=== PATIENT | female | born 1985 | race Caucasian/White ===

== ENCOUNTER 2017-05-06 07:17 | Emergency (ER) | payer BC ==
[2017-05-06 07:28] VITALS: BP 100/58
--- NOTE | 2017-05-06 07:53 | UC ---
Lower Extremity/Ankle HPI - HPI Summary HPI Summary: 19 weeks GA, last night inturned her right ankle walking on uneven ground. History of right ankle fracture and episodes of sprains over the past decades. Able to weight bear, but awoke in the night with pain. Using ice, no analgesics. - History of Current Complaint Chief Complaint: UCLowerExtremity Stated Complaint: RT ANKLE INJURY Time Seen by Provider: 05/06/17 07:33 Hx Obtained From: Patient Hx Last Menstrual Period: has not had since having her baby 5 weeks ago ?: Yes - , 19 weeks GA Onset/Duration: Sudden Onset Severity Initially: Mild Severity Currently: Moderate Pain Intensity: 5 Pain Scale Used: 0-10 Numeric Aggravating Factor(s): Ambulation Alleviating Factor(s): Rest, Ice Able to Bear Weight: Yes - Risk Factors Gout Risk Factors: Negative DVT Risk Factors: Septic Arthritis Risk Factor: Negative - Allergies/Home Medications Allergies/Adverse Reactions: Allergies Allergy/AdvReac Type Severity Reaction Status Date / Time No Known Allergies Allergy Verified 05/06/17 07:21 PMH/Surg Hx/FS Hx/Imm Hx Previously Healthy: Yes - Surgical History Surgical History: Yes Surgery Procedure, Year, and Place: [facility] 2013 - Family History Known Family History: Positive: Other - mom s/p sony. 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 Skin: Negative Eyes: Negative ENT: Negative Respiratory: Negative Cardiovascular: Negative Gastrointestinal: Negative Genitourinary: Negative Motor: Negative Neurovascular: Negative Musculoskeletal: Other: - right ankle pain Neurological: Negative Psychological: Negative All Other Systems Reviewed And Are Negative: Yes Physical Exam Triage Information Reviewed: Yes Appearance: Well-Appearing, Pain Distress - mild Vital Signs: Initial Vital Signs Temp 97.5 F 05/06/17 07:21 Pulse 71 05/06/17 07:21 Resp 16 05/06/17 07:21 BP 100/58 05/06/17 07:21 Pulse Ox 100 05/06/17 07:21 Vital Signs Reviewed: Yes ENT: Positive: Normal ENT inspection Respiratory: Positive: Lungs clear, Normal breath sounds Cardiovascular: Positive: RRR, No Murmur Musculoskeletal Exam: Other - tenderness inferior talo-fibular ligament with mild to moderate swelling, no ecchymosis Musculoskeletal: Positive: ROM Intact - right ankle with only mild loss of dorsiflexion, normal plantar flexion, No Edema, ROM Limited @ Neurological: Positive: Alert, Muscle Tone Normal Psychological Exam: Normal Skin Exam: Normal Lower Extremity Course/Dx - Course Course Of Treatment: right ankle sprain, mild to moderate, with past history of recurrent sprains. Will PRIYA wrap, ice, elevate. Decision made to defer xray given low likelihood of fracture. Referral to ortho for back up assessment if not improving. - Differential Dx/Diagnosis Differential Diagnosis/HQI/PQRI: Sprain, Strain Provider Diagnoses: right ankle sprain. Discharge - Discharge Plan Condition: Stable Disposition: HOME Patient Education Materials: Ankle Sprain (ED) Referrals: Natanael Hunter DO [Primary Care Provider] - Bunny Briseno MD [Medical Doctor] - Additional Instructions: Keep the ankle wrapped for support, and apply ice for 10 to 15 minutes every 3 to 4 hours. Keep your leg elevated as much as possible. As the swelling comes down, begin the range of motion exercises which you have. Should the ankle not be improving, activate the referral to orthopedics. Should you call, ask to see Dr. Briseno at the [place] office.
== END 2017-05-06 08:10 | disposition home or self-care (01) ==
LOC: UCCORT 07:17
DX: S93.401A Sprain of unspecified ligament of right ankle, initial encounter (principal); X58.XXXA Exposure to other specified factors, initial encounter; Y92.9 Unspecified place or not applicable
CPT/HCPCS: 99212; G0463